=== PATIENT | female | born 1975 | race Caucasian/White ===

== ENCOUNTER 2019-04-03 12:06 | Emergency (ER) | payer OTHER ==
[~2019-04-03] VITALS: Ht 154.9 cm; Wt 63.5 kg
[2019-04-03 12:20] VITALS: BP 124/79
--- NOTE | 2019-04-03 12:37 | NUR ---
43 y/o female c/o vaginal bleeding since yesterday an a 10/10 pain. She took Plan B a week ago. +n/v. VSS. Side rails +1. ER MD to see patient. PMH: None Allergies:NKDA Rx:None
[2019-04-03] MEDS: KETOROLAC 30 MG/ML VIAL IM ONE (13:00)
--- NOTE | 2019-04-03 13:42 | NUR ---
US completed by tech at bedside.
[2019-04-03] MEDS: ONDANSETRON 4 MG ODT PO ONE (14:03)
[2019-04-03] MEDS: HYDROcodone/APAP 5/325 MG 1 TAB TAB PO ONE (14:03)
[2019-04-03 16:24] VITALS: BP 95/59
--- NOTE | 2019-04-03 16:24 | NUR ---
Patient discharged with v/s stable. Written and verbal after care instructions given and explained. Patient alert, oriented and verbalized understanding of instructions. Ambulatory with steady gait. All questions addressed prior to discharge. ID band removed. Patient advised to follow up with PMD. Rx of ZOFRAN 4MG, NORCO 5MG-325MG, IBUPROFEN 600MG, given. Patient educated on indication of medication including possible reaction and side effects. Opportunity to ask questions provided and answered.
== END 2019-04-03 16:24 | disposition home or self-care (01) ==
LOC: MED 12:06
DX: R10.2 Pelvic and perineal pain (principal); N93.9 Abnormal uterine and vaginal bleeding, unspecified; R11.0 Nausea
CPT/HCPCS: 76856; 81025; 93976; 96372; 99284; J1885; Q0092; Q0162

== ENCOUNTER 2023-06-11 16:14 | Emergency (ER) | payer OTHER ==
[~2023-06-11] VITALS: Ht 165.1 cm; Wt 72.6 kg
[2023-06-11 16:27] VITALS: BP 117/70; PULSE 81; RESP 18; TEMP 97.9; O2SAT 99
[2023-06-11] MEDS ORDERED: KETOROLAC 60 MG/2 ML VIAL IM ONE (16:55)
[2023-06-11] MEDS ORDERED: ACET-8905 PO (17:13)
[2023-06-11] MEDS ORDERED: IBUP-2213 PO (17:13)
[2023-06-11] MEDS ORDERED: PRED20TA5 PO (17:13)
[2023-06-11 17:40] VITALS: BP 115/70; PULSE 80; RESP 18; TEMP 98; O2SAT 99
[2023-06-11] MEDS ORDERED: NIRM1TAB PO (18:34)
== END 2023-06-11 17:40 | disposition home or self-care (01) ==
LOC: MED 16:14
DX: R07.89 Other chest pain (principal); Z20.822 Contact with and (suspected) exposure to COVID-19; R05.9 Cough, unspecified; Z79.899 Other long term (current) drug therapy
CPT/HCPCS: 87426; 93005; 96372; 99284; J1885

== ENCOUNTER 2023-06-17 10:57 | Emergency (ER) | payer OTHER ==
[~2023-06-17] VITALS: Ht 165.1 cm; Wt 72.6 kg
[~2023-06-17 10:57] MED LIST: ACET-8905 PO; IBUP-2213 PO; NIRM1TAB PO; PRED20TA5 PO
[2023-06-17 11:16] VITALS: BP 114/81; PULSE 66; RESP 14; TEMP 98.7; O2SAT 98
[2023-06-17 12:59] VITALS: BP 114/81; PULSE 66; RESP 14; TEMP 98.7; O2SAT 98
== END 2023-06-17 12:59 | disposition home or self-care (01) ==
LOC: MED 10:57
DX: G43.909 Migraine, unspecified, not intractable, without status migrainosus (principal); Z20.822 Contact with and (suspected) exposure to COVID-19; Z79.899 Other long term (current) drug therapy
CPT/HCPCS: 99283